=== PATIENT | female | born 1995 | race Caucasian/White ===

== ENCOUNTER 2020-02-05 17:41 | Emergency (ER) | payer OTHER ==
[~2020-02-05] VITALS: Ht 170.2 cm; Wt 68.0 kg
[2020-02-05 17:57] VITALS: BP 117/72
[2020-02-05] MEDS ORDERED: Haloperidol 5mg/ml Inj IM ONE (18:00)
--- NOTE | 2020-02-05 18:21 | Diagnostic Imaging Report ---
EXAM: XR Left Hand Complete, 3 or More Views CLINICAL HISTORY: PAIN TECHNIQUE: Frontal, lateral and oblique views of the left hand. COMPARISON: No relevant prior studies available. FINDINGS: Bones/joints: Unremarkable. No acute fracture. No dislocation. Soft tissues: Unremarkable. No radiopaque foreign body. IMPRESSION: Normal left hand x-rays.
--- NOTE | 2020-02-05 18:41 | Emergency Room Report ---
History of Present Illness General Chief Complaint: General Complaint Source: Patient Present Illness HPI 24-year-old female with history of schizophrenia currently not controlled brought in by paramedics due to left hand pain without any fall or injury and also feeling like she might be . Patient does not give a urine sample as she starts urinating all over the floor. Appears to be under the influence of an unknown stimulant. Patient is not making any sense and does not answer questions correctly. Patient is a poor historian at this time is to be reevaluated and reassessed after Haldol administered. Allergies: Coded Allergies: No Known Allergies (Unverified , 02/05/20) COVID-19 Screening Contact w/high risk pt: No Experienced COVID-19 symptoms?: No COVID-19 Testing performed DENTAL SURGERY DOCTOR: No Patient History Past Medical History: see triage record Past Surgical History: unable to obtain Pertinent Family History: unable to obtain Last Menstrual Period: pt cant remember Reviewed Nursing Documentation: PMH: Agreed; PSxH: Agreed Nursing Documentation-PMH Past Medical History: No History, Except For History Of Psychiatric Problem: Yes - BIPOLAR and SCHZOPHRENIA Review of Systems All Other Systems: negative except mentioned in HPI Physical Exam Vital Signs Date Time Temp Pulse Resp B/P (MAP) Pulse Ox O2 Delivery O2 Flow Rate FiO2 02/05/20 17:34 97.9 112 16 117/72 (87) 97 Room Air Sp02 EP Interpretation: reviewed, normal General Appearance: mild distress Head: normocephalic, atraumatic Eyes: bilateral eye normal inspection, bilateral eye PERRL ENT: normal ENT inspection Neck: normal inspection Respiratory: normal inspection Cardiovascular #1: normal inspection Gastrointestinal: non tender Musculoskeletal: back normal Neurologic: alert Skin: no rash Lymphatic: no adenopathy Medical Decision Making PA Attestation All my diagnosis and treatment plans were reviewed ad discussed with my sup ervising physician Dr. Soler Diagnostic Impression: Primary Impression: Psychosis ER Course 24-year-old female with history of schizophrenia currently not controlled brought in by paramedics due to left hand pain without any fall or injury and also feeling like she might be . Patient does not give a urine sample as she starts urinating all over the floor. Appears to be under the influence of an unknown stimulant. Patient is not making any sense and does not answer questions correctly. Patient is a poor historian at this time is to be reevaluated and reassessed after Haldol administered. Ddx considered but are not limited to: generalized anxiety disorder, panic attack, depression with psycotic featurs, bipolar disorder, drug overdose Vital signs: are WNL, pt. is afebrile H&PE are most consistent with: Psychosis ORDERS: urine test, left hand x-ray ED INTERVENTIONS: Khushbu Castellanos signed out the patient to Dr. Soler at 9PM Other X-Ray Diagnostic Results Other X-Ray Diagnostic Results : X-Ray ordered: left hand # of Views/Limited Vs Complete: 3 View Indication: Pain EP Interpretation: Yes PA Xray: Interpretation reviewed, by supervising MD, and agrees with findings. Interpretation: no dislocation, no soft tissue swelling, no fractures Impression: No acute disease Electronically Signed by: Herlidna Edwards PA-C Last Vital Signs Date Time Temp Pulse Resp B/P (MAP) Pulse Ox O2 Delivery O2 Flow Rate FiO2 02/05/20 17:57 97.9 112 16 117/72 97 Room Air Referrals: NOT CHOSEN IPA/,REFERRING (PCP) Herlinda Paulino Feb 05, 2020 18:41
[2020-02-05] MEDS ORDERED: IBUPROFEN600 M1 ORAL (22:40)
[2020-02-05] MEDS ORDERED: ZYPREXA10 MG ORAL (22:40)
[2020-02-05 22:50] VITALS: BP 107/76
[2020-02-06 01:00] VITALS: BP 106/78
[2020-02-06 04:44] VITALS: BP 112/72
[2020-02-06 05:15] VITALS: BP 118/76
== END 2020-02-06 05:15 | disposition home or self-care (01) ==
LOC: EDBD 17:41 → EMR 17:55
DX: F29 Unspecified psychosis not due to a substance or known physiological condition (principal); M25.542 Pain in joints of left hand; F31.9 Bipolar disorder, unspecified; F20.9 Schizophrenia, unspecified
CPT/HCPCS: 73120; 81025; 96372; J1630; Z7502; 99283